=== PATIENT | male | born 1980 | race Caucasian/White ===

== ENCOUNTER 2025-02-25 18:05 | Emergency (ER) | payer OTHER ==
[~2025-02-25] VITALS: Ht 182.9 cm; Wt 86.2 kg
[2025-02-25] MEDS ORDERED: IBUPROFEN 800 MG TABLET ONE (19:28)
[2025-02-25 19:29] VITALS: TEMP 98.4
[2025-02-25] MEDS: IBUPROFEN 800 MG TABLET PO ONE (19:29)
[2025-02-25] MEDS ORDERED: NAPR-1009 PO (19:48)
[2025-02-25 19:56] VITALS: BP 138/91; O2SAT 99
== END 2025-02-25 19:57 | disposition home or self-care (01) ==
LOC: ER 18:05
DX: M25.562 Pain in left knee (principal); Z88.0 Allergy status to penicillin; Z88.2 Allergy status to sulfonamides
CPT/HCPCS: 73560; A4606; A4663

== ENCOUNTER 2025-04-28 15:17 | Emergency (ER) | payer OTHER ==
[~2025-04-28] VITALS: Ht 182.9 cm; Wt 83.9 kg
[~2025-04-28 15:17] MED LIST: NAPR-1009 PO
[2025-04-28] MEDS: LIDOCAINE HCL 1% 20 ML VIAL TP ONE (16:58)
[2025-04-28] MEDS ORDERED: NEOMY/BACITRA/POLYMYXIN B OINT UD PACKET TP ONE (17:21)
[2025-04-28] MEDS ORDERED: CLIN300C12 PO (17:26)
[2025-04-28] MEDS ORDERED: HYDR-3972 PO (17:26)
[2025-04-28] MEDS: NEOMY/BACITRA/POLYMYXIN B OINT UD PACKET TP ONE (17:30)
[2025-04-28] MEDS ORDERED: CLINDAMYCIN HCL 150 MG CAPSULE ONE (17:31)
[2025-04-28] MEDS ORDERED: HYDROCODONE/APAP 5-325MG TABLET ONE (17:32)
[2025-04-28] MEDS: CLINDAMYCIN HCL 150 MG CAPSULE PO ONE (17:35)
[2025-04-28] MEDS: HYDROCODONE/APAP 5-325MG TABLET PO ONE (17:36)
[2025-04-28 17:51] VITALS: BP 128/73; TEMP 97.8; O2SAT 99
== END 2025-04-28 17:52 | disposition home or self-care (01) ==
LOC: ER 15:17
DX: N49.2 Inflammatory disorders of scrotum (principal); Z88.0 Allergy status to penicillin; Z88.2 Allergy status to sulfonamides
CPT/HCPCS: A4606; A4663